=== PATIENT | male | born 1930 | race Caucasian/White ===

== ENCOUNTER 2017-01-27 17:42 | Inpatient (IN) | payer MEDICARE ==
--- NOTE | ~2017-01-27 | EKG ---
PATIENT: ADELE LUJAN UNIT #: [id number] Ventricular Rate: 80 BPM Atrial Rate: 80 BPM P-R Interval: 198 ms QRS Duration: 102 ms Q-T Interval: 374 ms QTC Calculation(Bezet): 431 ms P [place]: 48 degrees Calculated R [place]: 3 degrees Calculated T [place]: 30 degrees Diagnosis Line: Normal sinus rhythm Diagnosis Line: Poor R wave progression questionable lead position Diagnosis Line: or body habitus Otherwise normal ECG Diagnosis Line: No previous ECGs available Diagnosis Line: Confirmed by RAVI SWARTZ MD ([id number]) on 01/28/2017 Diagnosis Line: 5:25:14 PM INTERPRETING MD: SHERIDAN SANCHEZ
--- NOTE | ~2017-01-27 | CR63 ---
[facility]. [facility] A Service of [facility] & [facility] RADIOLOGY TEXT RESULTS PATIENT: ADELE LUJAN LOCATION: SED [id number] : [birth year] UNIT #: [id number] AGE: [address]: Brianda Crowe MD SEX: M ORDER DR: [id number] [place] [id number] E MR#: [id number] #: [id number] NAME: ADELE LUJAN : 1930 SEX: M STUDY DATE/TIME: 01/27/2017 19:56 UNIT: SED ROOM: STUDY DESCRIPTION: CR Chest 2 View Attending Physician: Deepak Morales M.D. Ordering Physician: Deepak Morales M.D. Primary Care Physician: Evie Mcpherson M.D. MEDICAL IMAGING REPORT This report is preliminary unless electronic signature is present. EXAM 2 view chest. INDICATIONS Fever, vomiting and diarrhea. Headache. FINDINGS PA and lateral views of the chest without comparison. Cardiac size within normal limits. There is increased interstitial markings in both lungs. There is more focal consolidation in the right lower lobe. No pleural effusion. IMPRESSION 1. Increased interstitial markings in both lungs. Unfortunately no prior exams are available for comparison and this could be due to either an atypical infection, mild interstitial edema, or chronic interstitial changes. 2. More focal area of density in the right lower lobe. Please correlate for evidence of a pneumonia. Follow-up radiographs are recommended. Dictated by... Bienvenido Worley M.D. THIS IS AN ELECTRONICALLY VERIFIED REPORT Bienvenido Worley M.D. at 01/27/2017 9:47 PM RACIEL/allison TD: 01/27/2017 21:02 JOB #: [id number] MEDICAL IMAGING REPORT Page 1 of 1
--- NOTE | ~2017-01-27 | HP ---
Unit #: [id number] #: [id number] Patient: ADELE LUJAN [id number] [address] [address] [id number] I MR#: [id number] NAME: ADELE LUJAN. ROOM: 215 Age: 86 Sex: M Admission Date: 01/27/2017 : 1930 Attending Physician: Brianda Crowe M.D. Primary Care Physician: Evie Mcpherson M.D. HISTORY AND PHYSICAL CHIEF COMPLAINT Community-acquired pneumonia with delirium. HISTORY This very pleasant, 86-year-old male with hypertension and chronic back pain [place] [facility] [place]. Patient was in his usual state of health until recently when he developed a deep cough productive of brown sputum. Yesterday morning, he experienced nausea, vomiting, and diarrhea. Yesterday afternoon, he appeared to be pale, weak, and was disoriented. He was taken [place] [facility] [place] where his temperature was 101.8. Chest x-ray shows increased interstitial changes, but focal area in the right lower lobe worrisome for pneumonia. Patient was bolused with IV fluids and given Tylenol, Rocephin, and potassium for hypokalemia. At this time, he is feeling improved and his mental status is improved. He now is oriented x3. PAST MEDICAL HISTORY 1. Hypertension. 2. Chronic low back pain. 3. Hyperlipidemia. 4. BPH. 5. GERD. 6. Back surgery. ALLERGIES None. HOME MEDICATIONS 1. Diovan 160/12.5 mg daily. 2. Zocor 20 mg daily. 3. Testosterone injections each month. 4. Vitamin D and calcium. 5. Percocet 10/325 q.4 hours as needed. FAMILY HISTORY Negative for heart or lung disease. SOCIAL HISTORY The patient lives alone and uses a cane. He is a lifelong nonsmoker and does not drink alcohol. REVIEW OF SYSTEMS Somewhat difficult to obtain as patient is hard of hearing. He admits to Unit #: [id number] #: [id number] Patient: ADELE LUJAN hypertension, back pain, back surgery, BPH, hyperlipidemia, recent cough, and feeling feverish and chilled. All other systems were reviewed and are negative. PHYSICAL EXAMINATION GENERAL APPEARANCE: Very pleasant, young-appearing, 86-year-old male who currently is in no acute distress. VITAL SIGNS: Temperature 101.8, pulse 87, respirations 18, blood pressure 163/77, and O2 saturation is 98% on room air. HEENT: Eyes: PERRLA. Extraocular muscles are intact. Pharynx is benign. Dry mucosal membranes. NECK: Supple without adenopathy or thyromegaly. CHEST: A few rhonchi are noted. CARDIAC: Normal S1 and S2 without murmur. ABDOMEN: Bowels sounds are present. No hepatosplenomegaly, tenderness, or masses. EXTREMITIES: Without edema. Pedal pulses are diminished. No splinter hemorrhage is noted over the fingernail beds. NEUROLOGIC: Patient is mildly somnolent, but easily arousable. His cranial nerves are intact, except that he is hard of hearing. He is oriented x3. He has equal strength throughout and is able to sit up without assistance. DIAGNOSTIC STUDIES LABORATORY: Admission labs: Hematocrit is 44, white blood count 12.2, and normal platelet count. Influenza screen negative. SMA-12: Sodium 132, potassium 3.3, chloride 95, and calcium 9.4. Normal lipase. Normal lactic acid level. IMAGING: Chest x-ray: Increased markings, particularly in the right lower lobe, which is suggestive of pneumonia. CARDIOVASCULAR: EKG: Normal sinus rhythm. Rate 80. Normal appearing. ASSESSMENT 1. Community-acquired pneumonia. 2. Delirium secondary to above. 3. Hypokalemia. 4. Hypertension. 5. Hyperlipidemia. 6. GERD. 7. BPH. 8. Chronic back pain. PLANS 1. Rocephin and Zithromax pending blood cultures. I will also ask for sputum cultures and give mucolytics. 2. IV fluids. 3. Potassium was replaced prior to transfer. 4. Decrease Percocet for now. 5. DVT prophylaxis. 6. Check urinalysis if not already obtained. 7. Patient had a conversation with [place] [facility] [place] that the patient was a DNR. Dictated by Unit #: [id number] #: [id number] Patient: ADELE LUJAN M.D. AML/pc TD: 01/28/2017 05:17 JOB #: [id number] HISTORY AND PHYSICAL Page 1 of 1 X Brianda Crowe MD HISTORY AND PHYSICAL
--- NOTE | ~2017-01-27 | CT71 ---
[facility] A Service [facility] RADIOLOGY TEXT RESULTS PATIENT: ADLEE LUJAN LOCATION: JENNIFER : [birth year] UNIT #: [id number] AGE: [address]: Brianda Crowe MD SEX: M ORDER DR: [id number] [place] [id number] E MR#: [id number] Acc #: [id number] NAME: ADELE LUJAN : 1930 SEX: M STUDY DATE/TIME: 01/27/2017 19:54 UNIT: SED ROOM: STUDY DESCRIPTION: CT Head Wo Contrast Attending Physician: Deepak Morales M.D. Ordering Physician: Deepak Morales M.D. Primary Care Physician: Evie Mcpherson M.D. MEDICAL IMAGING REPORT This report is preliminary unless electronic signature is present. EXAM CT head HISTORY Agitation. Fever. Vomiting. Headache. TECHNIQUE CT head without contrast. This CT exam was performed with one or more of the following radiation dose reduction techniques: automatic control, adjustment of mA and/or kV according to patient size, and iterative reconstruction. COMPARISON CT head dated 09/16/2014 FINDINGS No acute intracranial hemorrhage, mass lesion, or acute infarct. Wjog-sflqy-mttaim differentiation is within normal limits. There is some mild global atrophy and mild proximal vessel changes. The ventricles and basilar cisterns are normal in size and configuration. No extraaxial collections. No acute osseous abnormalities. There is mild mucosal thickening in the maxillary sinuses. IMPRESSION 1. No acute intracranial findings. 2. Atrophy and chronic small vessel changes. [facility] A Service [facility] RADIOLOGY TEXT RESULTS PATIENT: ADELE LUJAN LOCATION: JENNIFER : [birth year] UNIT #: [id number] AGE: [address]: Brianda Crowe MD SEX: M ORDER DR: Dictated by... Bienvenido Worley M.D. THIS IS AN ELECTRONICALLY VERIFIED REPORT Bienvenido Worley M.D. at 01/27/2017 9:47 PM RACIEL/jack TD: 01/27/2017 20:52 JOB #: [id number] MEDICAL IMAGING REPORT Page 1 of 1
--- NOTE | ~2017-01-27 | DS ---
Unit #: [id number] #: [id number] Patient: ADELE LUJAN [id number] [address] [address] [id number] I MR#: [id number] NAME: ADELE LUJAN. ROOM: 215 Age: 86 Sex: M Admission Date: 01/28/2017 : 1930 Discharge Date: Attending Physician: Saadia Senior M.D. Primary Care Physician: Evie Mcpherson M.D. DISCHARGE SUMMARY DISCHARGE DIAGNOSES 1. Toxic metabolic encephalopathy from pneumonia. 2. Community-acquired pneumonia. 3. Hypertension, uncontrolled. 4. Chronic back pain. 5. Hyperlipidemia. 6. Benign prostatic hypertrophy. 7. Gastroesophageal reflux disease. CONSULTATION None. PROCEDURE None. DIAGNOSTIC STUDIES LABORATORY: Urine cultures negative. Sodium 137, potassium 3.9, creatinine 0.8. WBC 11.1, hemoglobin 13.2. Blood cultures negative. Strep throat negative. Influenza A and B negative. IMAGING: Chest x-ray, two views, shows interstitial markings, right lower lobe focal pneumonia. CAT scan of the head: No acute changes. ALLERGIES None. DISCHARGE MEDICATIONS 1. Ceftin 500 mg p.o. b.i.d. for five days. 2. Zithromax 500 mg p.o. daily for five days. 3. Testosterone 200 mg IM monthly. 4. Diovan/hydrochlorothiazide 160/12.5 one tablet p.o. daily. 5. Zocor 20 daily. 6. Percocet 5 mg p.o. b.i.d. 7. Nexium 20 daily. 8. Vitamin D one tablet daily. 9. Calcium daily, home medication. HOSPITALIZATION COURSE An 86 year old admitted because of confusion. Toxic metabolic encephalopathy: Most likely secondary to pneumonia, currently resolved. CAT scan of the head is negative. He is able to Unit #: [id number] #: [id number] Patient: ADELE LUJAN ambulate and eat. He is using a cane for ambulation. Pneumonia, community acquired: Mostly right lower lobe. Patient was on Rocephin and Zithromax. Patient will be discharged on Zithromax and Ceftin for five days. Hypertension: Uncontrolled. Continue with home medications. DISPOSITION Discharge home. FOLLOWUP Follow with family physician in one week time. Dictated by... Tommie Frank TD: 01/29/2017 10:28 JOB #: [id number] DISCHARGE SUMMARY Page 1 of 1 X Saadia Senior MD X DISCHARGE SUMMARY
[~2017-01-27 17:42] MED LIST: CALCIUM; DIOVAN HCT 160/1 TAB PO; DUTASTERIDE-TA1 EACH PO; FLOMAX0.4 M1 PO; LASIX20 MG PO; NEURONTIN PO; OXYCODONE-ACET1 EAC1 PO; PERCODAN TABLET1 TA1 PO; TESTOSTERONE SHOT; UROCIT K PO; VITAMIN D; ZOCOR PO
[2017-01-27 20:18] LABS: POC - CKMB 2.5 ng/mL (0.0-7.9); POC - TROPONIN <0.05 ng/mL (<=0.05)
[2017-01-27 20:25] LABS: BASOPHIL% 0.2 % (0-2.5); HEMOGLOBIN 14.6 gm/dL (13.0-16.0); LYMPHOCYTE# 0.9 X10e3 (1.0-3.5); LYMPHOCYTE% 7.2 % (17.0-45.0); MEAN CELL VOLUME 86.6 FL (83-96); MEAN CORPUSCULAR HEMOGLOBIN 28.7 PG (28-34); MEAN CORPUSCULAR HGB CONC 33.2 g/dL (30-36); MEAN PLATELET VOLUME 9.8 FL (6.5-11.5); MONOCYTE# 1.3 X10e3 (0-1.0); MONOCYTE% 10.8 % (3.0-12.0); NEUTROPHIL% 81.8 % (40-75); PLATELET COUNT 174 X10e3 (140-420); RED BLOOD COUNT 5.08 X10e (3.90-5.60); RED CELL DISTRIBUTION WIDTH 13.8 % (11.0-15.5); WHITE BLOOD COUNT 12.2 X10e3 (4.0-10.5)
[2017-01-27 20:27] LABS: INFLUENZA A NEG (NEG); INFLUENZA B NEG (NEG)
[2017-01-27 20:28] LABS: DIFF IND NO
[2017-01-27 20:37] LABS: ALBUMIN SERUM 4.3 g/dL (3.5-5.0); BILIRUBIN, DIRECT 0.2 mg/dL (0.0-0.2); BILIRUBIN,INDIRECT 0.7 mg/dL (0.0-0.9); BILIRUBIN,TOTAL 0.9 mg/dL (0.2-2.0); CALCIUM SERUM 9.4 mg/dL (8.4-10.2); GLOM FILT RATE Estimated 67.4 mL/min (>60); POTASSIUM 3.3 mmol/L (3.5-5.1)
[2017-01-28] MEDS ORDERED: ZOCOR20 MG PO (01:07)
[2017-01-28] MEDS ORDERED: DIOVAN HCT 1601 EACH PO (01:07)
[2017-01-28] MEDS ORDERED: DEPO-TESTOT200 MG/ML IM (01:10)
[2017-01-28] MEDS ORDERED: OXYCODONE-APAP1 EAC5 PO (01:13)
[2017-01-28] MEDS ORDERED: NEXIUM20 MG PO (01:14)
[2017-01-28] MEDS ORDERED: VITAMIN D (01:15)
[2017-01-28] MEDS ORDERED: CALCIUM (01:16)
[2017-01-28 05:26] LABS: URINE APPEARANCE CLEAR; URINE BILIRUBIN NEG (NEG); URINE BLOOD TRACE (NEG); URINE COLOR YELLOW; URINE GLUCOSE NEG (NEG); URINE KETONE 2+ (NEG); URINE LEUKOCYTE ESTERASE NEG (NEG); URINE NITRATE NEG (NEG); URINE PROTEIN 2+ (NEG); URINE SPECIFIC GRAVITY 1.021 (1.003-1.035)
[2017-01-28 05:27] LABS: URINE BACTERIA AUWI NEG (NEGATIVE); URINE SQUAMOUS EPITHELIAL CELL NONE SEEN /[HPF]; UWBCS1 AUWI 0-2 (0-5)
[2017-01-28 05:28] LABS: CULTURE INDICATED? NO
[2017-01-28 06:08] LABS: BASOPHIL% 0.3 % (0-2.5); HEMATOCRIT 42.4 % (38.0-50.0); HEMOGLOBIN 13.7 gm/dL (13.0-16.0); LYMPHOCYTE# 0.8 X10e3 (1.0-3.5); LYMPHOCYTE% 6.5 % (17.0-45.0); MEAN CELL VOLUME 86.7 FL (83-96); MEAN CORPUSCULAR HEMOGLOBIN 27.9 PG (28-34); MEAN CORPUSCULAR HGB CONC 32.2 g/dL (30-36); MEAN PLATELET VOLUME 9.2 FL (6.5-11.5); MONOCYTE# 1.3 X10e3 (0-1.0); MONOCYTE% 11.2 % (3.0-12.0); NEUTROPHIL# 9.6 X10e3 (1.5-7.1); PLATELET COUNT 161 X10e3 (140-420); RED BLOOD COUNT 4.89 X10e (3.90-5.60); WHITE BLOOD COUNT 11.7 X10e3 (4.0-10.5)
[2017-01-28 06:11] LABS: DIFF IND NO
[2017-01-28 08:09] LABS: BUN/CREATININE RATIO 17.5; CALCIUM SERUM 8.6 mg/dL (8.4-10.2); CREATININE SERUM 0.8 mg/dL (0.6-1.4); GLOM FILT RATE Estimated 80.4 mL/min (>60); POTASSIUM 3.6 mmol/L (3.5-5.1)
[2017-01-29 06:06] LABS: HEMATOCRIT 40.7 % (38.0-50.0); HEMOGLOBIN 13.2 gm/dL (13.0-16.0); MEAN CELL VOLUME 86.7 FL (83-96); MEAN CORPUSCULAR HEMOGLOBIN 28.1 PG (28-34); MEAN CORPUSCULAR HGB CONC 32.4 g/dL (30-36); MEAN PLATELET VOLUME 9.5 FL (6.5-11.5); RED BLOOD COUNT 4.69 X10e (3.90-5.60); RED CELL DISTRIBUTION WIDTH 13.7 % (11.0-15.5); WHITE BLOOD COUNT 11.1 X10e3 (4.0-10.5)
[2017-01-29 07:21] LABS: ALBUMIN SERUM 3.3 g/dL (3.5-5.0); BILIRUBIN,TOTAL 1.1 mg/dL (0.2-2.0); BUN/CREATININE RATIO 18.75; CALCIUM SERUM 8.6 mg/dL (8.4-10.2); CREATININE SERUM 0.8 mg/dL (0.6-1.4); GLOM FILT RATE Estimated 80.4 mL/min (>60); POTASSIUM 3.9 mmol/L (3.5-5.1); PROTEIN TOTAL SERUM 6.5 g/dL (6.0-8.3)
[2017-01-29] MEDS ORDERED: AZITHROMYCIN500 MG PO (10:10)
[2017-01-29] MEDS ORDERED: CEFTIN PO (10:10)
== END 2017-01-29 14:43 | disposition home or self-care (01) | DRG 193 ==
LOC: SED 17:42 → C2A 21:31 → SEDOF 21:31 → SED 21:31 → SEDOF 21:31 → C2A 23:59 → SEDOF 23:59 → CEDOF 01-28 01:25 → C2A 01-28 01:25 → UNDODEPER 01-28 23:41 → C2A 01-29 14:43
PROVIDERS: Emergency Medicine; Internal Medicine
DX: J18.9 Pneumonia, unspecified organism (principal); G92 Toxic encephalopathy; I10 Essential (primary) hypertension; M54.9 Dorsalgia, unspecified; G89.29 Other chronic pain; E78.5 Hyperlipidemia, unspecified; N40.0 Benign prostatic hyperplasia without lower urinary tract symptoms; K21.9 Gastro-esophageal reflux disease without esophagitis; E87.6 Hypokalemia
CPT/HCPCS: 36415; 70450; 71020; 80048; 80053; 80076; 81003; 82553; 83605; 83690; 84484; 85025; 85027; 87040; 87070; 87086; 87205; 87651; 87804; 93005; 96360; 96365; 99285; J0456; J0696; J1650; J2405

== ENCOUNTER → 2017-05-19 | Outpatient (CLI) | payer MEDICARE ==
[~2017-05-19] MED LIST changes: +AZITHROMYCIN500 MG PO; +CEFTIN PO; +DEPO-TESTOT200 MG/ML IM; +DIOVAN HCT 1601 EACH PO; +NEXIUM20 MG PO; +OXYCODONE-APAP1 EAC5 PO; +ZOCOR20 MG PO
== END | disposition home or self-care (01) ==
LOC: CSSDAY 11:00
PROVIDERS: Orthopaedic Surgery Orthopaedic Surgery of the Spine
DX: M81.0 Age-related osteoporosis without current pathological fracture (principal)
CPT/HCPCS: 82310; 82652; 96372; J0897